=== PATIENT | female | born 1970 | race Caucasian/White ===

== ENCOUNTER 2021-12-10 06:39 | Day surgery (SDC) | payer BC ==
[~2021-12-10] VITALS: Ht 175.3 cm; Wt 54.8 kg
[2021-12-10] MEDS ORDERED: LIDOcaine 1%/PF 5ML 10 MG/ML VIAL SQ ONE (06:55)
[2021-12-10] MEDS ORDERED: albumin 25% 100mL bottle x 1 IV PRN (07:00)
[2021-12-10 07:15] VITALS: BP 107/60
[2021-12-10] MEDS ORDERED: HYDR-3964 PO (07:28)
[2021-12-10] MEDS ORDERED: AMIO200T61 PO (07:28)
[2021-12-10] MEDS ORDERED: NAPR-1170 PO (07:28)
[2021-12-10] MEDS ORDERED: LISI10TA27 PO (07:28)
[2021-12-10] MEDS ORDERED: ESCI-8 PO (07:28)
[2021-12-10 09:20] VITALS: BP 115/71
[2021-12-10 09:37] VITALS: BP 120/67
[2021-12-10 09:50] VITALS: BP 120/67
[2021-12-10 09:52] VITALS: BP 105/63
[2021-12-10 10:06] VITALS: BP 110/69
== END 2021-12-10 10:30 | disposition home or self-care (01) ==
LOC: SSTAY O 06:39
PROVIDERS: ATTEND Radiology Vascular & Interventional Radiology
DX: K66.8 Other specified disorders of peritoneum (principal); C48.2 Malignant neoplasm of peritoneum, unspecified; R18.8 Other ascites; F41.9 Anxiety disorder, unspecified; I10 Essential (primary) hypertension; Z88.0 Allergy status to penicillin; Z98.890 Other specified postprocedural states; Z79.899 Other long term (current) drug therapy; Z85.41 Personal history of malignant neoplasm of cervix uteri
CPT/HCPCS: 49406

== ENCOUNTER 2021-12-27 08:30 | Day surgery (SDC) | payer BC ==
[~2021-12-27] VITALS: Ht 175.3 cm; Wt 53.8 kg
[~2021-12-27 08:30] MED LIST: AMIO200T61 PO; ESCI-8 PO; HYDR-3964 PO; LISI10TA27 PO; NAPR-1170 PO
[2021-12-27] MEDS ORDERED: normal saline 1000ml 1,000 ML IV PRN (09:00)
[2021-12-27 10:15] VITALS: BP 100/70
[2021-12-27] MEDS ORDERED: heparin sodium, porcine/PF 100unit/ml 5ML syringe ONE (10:32)
[2021-12-27] MEDS ORDERED: LIDOCAINE 1% w/preservative (10 MG/ML) inj. 10mL VIAL ONE (10:32)
[2021-12-27] MEDS ORDERED: midazolam 1 mg/ML 2ml injection ONE ×2 (10:33→11:35)
[2021-12-27] MEDS ORDERED: fentaNYL/PF 50MCG/1 ML 2ML syringe ONE (10:33)
[2021-12-27] MEDS ORDERED: normal saline 1000ml 1,000 ML IV SCH (11:20)
[2021-12-27 12:00] VITALS: BP 103/68
[2021-12-27 12:15] VITALS: BP 125/52
[2021-12-27 12:30] VITALS: BP 113/74
[2021-12-27 12:45] VITALS: BP 113/55
[2021-12-27 13:00] VITALS: BP 112/67
== END 2021-12-27 13:10 | disposition home or self-care (01) ==
LOC: SSTAY O 08:30
PROVIDERS: ATTEND Radiology Diagnostic Radiology
DX: C53.9 Malignant neoplasm of cervix uteri, unspecified (principal); C78.6 Secondary malignant neoplasm of retroperitoneum and peritoneum; I10 Essential (primary) hypertension; F41.9 Anxiety disorder, unspecified; Z98.890 Other specified postprocedural states; Z88.0 Allergy status to penicillin; Z79.899 Other long term (current) drug therapy
CPT/HCPCS: 36561; 76937; 77001; 99152; 99153; C1769; C1788; C1894; J1642; J2250; J3010